=== PATIENT | female | born 1985 | race American Indian/Alaskan Native ===

== ENCOUNTER 2017-04-17 11:06 | Emergency (ER) | payer BC ==
[2017-04-17 11:07] VITALS: BMI 17.5
[2017-04-17 11:20] VITALS: BP 97/60; PULSE 120; RESP 17; TEMP 100.7; O2SAT 97
[2017-04-17] MEDS ORDERED: Amoxicillin-Clav 875-125 mg Tab PO STA (11:56)
--- NOTE | 2017-04-17 12:00 | ED PDOC ---
Arrival/HPI - General Chief Complaint: Cough, Cold, Congestion Time Seen by Provider: 04/17/17 11:23 Historian: Patient - History of Present Illness Narrative History of Present Illness (Text): 04/17/17 31 yo female w/o significant PMHx come in for evaluation of cold sx for past 4 days associated with lower grade fever, frontal headache, nasal congestion, runny nose and worsening of sore throat over the days. Pt describes headache as localized, worse with leaning forward. Otherwise, pt denies high fever, lethargy , denies worse headache of life, dizziness, vertigo, drooling, dyspnea, cough, CP, SOB, wheezing, abd. pain, V/D, back pain, UTI sx, denies recent travel or known sick contact. Ambulate to Ed for evaluation, not in any apparent distress. Past Medical History - Provider Review Nursing Documentation Reviewed: Yes - Travel History Have you recently traveled outside [place] w/in the past 3 mons?: No - Past History Past History: No Previous - Infectious Disease Hx of Infectious Diseases: None - Tetanus Immunization Tetanus Immunization: Unknown - Past Medical History Past Medical History: No Previous - Psychiatric Hx Substance Use: No - Surgical History Hx Section: Yes (2010) - Anesthesia Hx Anesthesia: Yes Hx Anesthesia Reactions: No Hx Malignant Hyperthermia: No - Suicidal Assessment Feels Threatened In Home Enviroment: No Family/Social History - Physician Review Nursing Documentation Reviewed: Yes Family/Social History: No Known Family HX Smoking Status: Former Smoker Hx Alcohol Use: Yes Frequency of alcohol use: Socially Hx Substance Use: No Hx Substance Use Treatment: No Allergies/Home Meds Allergies/Adverse Reactions: Allergies No Known Allergies Allergy (Verified 04/17/17 11:16) Review of Systems - Review of Systems Constitutional: Fevers Eyes: Normal ENT: Sore Throat, Rhinorrhea, Sinus Congestion Respiratory: Normal. absent: Cough, Sputum, Wheezing Cardiovascular: Normal. absent: Chest Pain Gastrointestinal: Normal. absent: Abdominal Pain, Diarrhea, Vomiting Genitourinary Female: Normal Musculoskeletal: Normal Skin: Normal. absent: Rash Neurological: Headache Endocrine: Normal Hemo/Lymphatic: Normal Psychiatric: Normal Physical Exam Vital Signs Reviewed: Yes Vital Signs Temp Pulse Resp BP Pulse Ox 04/17/17 11:18 100.7 F H 120 H 17 97/60 L 97 Temperature: Febrile Blood Pressure: Normal Pulse: Tachycardic Respiratory Rate: Normal Appearance: Positive for: Well-Appearing, Non-Toxic, Comfortable Pain Distress: Mild Mental Status: Positive for: Alert and Oriented X 3 - Systems Exam Head: Present: Normocephalic Conjunctiva: Present: Normal Ears: Present: NORMAL TM Mouth: Present: Moist Mucous Membranes. No: Drooling Pharnyx: Present: ERYTHEMA (B/L), EXUDATE (Left tonsilar), TONSILS ENLARGED (L>R ). No: Peritonsilar Swelling Nose (Internal): Present: Rhinorrhea (clear B/L) Neck: Present: Trachea Midline. No: Meningeal Signs Respiratory/Chest: Present: Clear to Auscultation, Good Air Exchange. No: Respiratory Distress, Accessory Muscle Use, Wheezes, Decreased Breath Sounds Cardiovascular: Present: Regular Rate and Rhythm, Normal S1, S2. No: Murmurs Abdomen: Present: Normal Bowel Sounds. No: Tenderness, Distention, Peritoneal Signs, Rebound, Guarding Back: No: CVA Tenderness Upper Extremity: Present: Normal ROM Lower Extremity: Present: Normal ROM. No: Edema, CALF TENDERNESS, Swelling Neurological: Present: GCS=15, Speech Normal Skin: Present: Warm, Dry, Normal Color. No: Rashes Lymphatic: Present: Cervical Adenopathy (L>R, mild, tender) Psychiatric: Present: Alert, Oriented x 3 Medical Decision Making ED Course and Treatment: 04/17/17 On re-eval, pt is awake, alert, not in any apparent distress. Fever improved, hemodynamicaly stable. PusleOx 97% RA ENT: exam c/w acute tonsillitis, left. SInusitis. Uvula midline, no edema. Neck: SUpple, (-) meningeal sign. Lungs: CTA B/L, BS equal B/L. CVS: (+)S1S2, reg. ABd: benign. Neurologicaly intact. Pt advised on course of ds. ref. to f/u with PMD in 2-3 days for re-eavl. return to ED if any worsening or new changes. - Medication Orders Current Medication Orders: Discontinued Medications Amoxicillin/Clavulanate Potassium (Augmentin 875 Mg-125 Mg Tab) 1 tab PO STAT STA PRN Reason: Protocol Stop: 04/17/17 11:57 Last Admin: 04/17/17 12:15 Dose: 1 tab Ibuprofen (Motrin Tab) 400 mg PO STAT STA Stop: 04/17/17 11:56 Last Admin: 04/17/17 12:15 Dose: 400 mg MAR Pain/Vitals Document 04/17/17 12:15 (Rec: 04/17/17 12:15 [facility]-[id number]) Pain Reassessment Is This A Pain ReAssessment? No Prednisone (Prednisone Tab) 60 mg PO STAT STA Stop: 04/17/17 11:56 Last Admin: 04/17/17 12:15 Dose: 60 mg Disposition/Present on Arrival - Present on Arrival Any Indicators Present on Arrival: No History of DVT/PE: No History of Uncontrolled Diabetes: No Urinary Catheter: No History of Decub. Ulcer: No History Surgical Site Infection Following: None - Disposition Have Diagnosis and Disposition been Completed?: Yes Diagnosis: Tonsillitis Disposition: HOME/ ROUTINE Disposition Time: 11:57 Patient Plan: Discharge Condition: STABLE Discharge Instructions (ExitCare): Tonsillitis (ED) Additional Instructions: ENCOURAGE FLUIDS WARM SALTY WATER THROAT GURGLES TWICE DAILY TAKE MEDICATION PRESCRIBED FOLLOW UP WITH PMD IN 2-3 DAYS FOR RE-EVALUATION. RETURN TO ED IF ANY WORSENING OR NEW CHANGES. Prescriptions: Amoxicillin/Clavulanate [Augmentin 875 MG-125 MG] 1 tab PO BID #14 tab Ibuprofen [Motrin] 1 tab PO Q6 #20 tab Prednisone [Deltasone] 20 mg PO DAILY #3 tablet Referrals: [facility] – [place], [place] [Outside] - Follow up with primary Forms: [employer] (Gu[place]ian), WORK NOTE
== END 2017-04-17 12:41 | disposition home or self-care (01) ==
LOC: ED 11:06
DX: J03.90 Acute tonsillitis, unspecified (principal); Z87.891 Personal history of nicotine dependence

== ENCOUNTER 2017-12-10 10:56 | Emergency (ER) | payer BC ==
[2017-12-10 10:56] VITALS: BMI 17.5
[2017-12-10 11:27] VITALS: BP 108/74; PULSE 80; RESP 16; TEMP 98.6; O2SAT 95
--- NOTE | 2017-12-10 12:06 | ED PDOC ---
Arrival/HPI - General Chief Complaint: GI Problem Time Seen by Provider: 12/10/17 11:06 Historian: Patient - History of Present Illness Narrative History of Present Illness (Text): 12/10/17 12:02 A 32 year old female, with no significant past medical history, presents to the emergency department with a complaint of 3 day duration nausea and vomiting. She notes that she has been vomiting continuously and has not been able to keep any food down. The patient states that she has been trying to stay hydrated and is able to tolerate fluids. She states that she experiences the nausea intermittently. The patient reports that the last full meal she ate was Sunday and that she took Advil that same night for a headache which resolved. The patient does not recall her last menstrual period, but notes that there is a possibility of being . She notes that she has an IUD in place. The patient denies fevers, chills, headache, dizziness, sore throat, cough, chest pain, shortness of breath, dyspnea on exertion, abdominal pain, diarrhea, neck/ back pain, urinary/bowel changes or any other complaint. PMD: None Time/Duration: Other (3 Days) Symptom Onset: Sudden Symptom Course: Unchanged Activities at Onset: Rest, Light Context: Home Past Medical History - Provider Review Nursing Documentation Reviewed: Yes - Past History Past History: No Previous - Infectious Disease Hx of Infectious Diseases: None - Tetanus Immunization Tetanus Immunization: Unknown - Past Medical History Past Medical History: No Previous - Cardiac Hx Cardiac Disorders: No - Pulmonary Hx Respiratory Disorders: No - Neurological Hx Neurological Disorder: No - HEENT Hx HEENT Disorder: No - Renal Hx Renal Disorder: No - Endocrine/Metabolic Hx Endocrine Disorders: No - Hematological/Oncological Hx Blood Disorders: No - Integumentary Hx Dermatological Disorder: No - Musculoskeletal/Rheumatological Hx Musculoskeletal Disorders: No - Gastrointestinal Hx Gastrointestinal Disorders: No - Genitourinary/Gynecological Hx Genitourinary Disorders: Yes Other/Comment: IUD - Psychiatric Hx Psychophysiologic Disorder: No Hx Substance Use: No - Surgical History Hx Section: Yes - Anesthesia Hx Anesthesia: Yes Hx Anesthesia Reactions: No Hx Malignant Hyperthermia: No - Suicidal Assessment Feels Threatened In Home Enviroment: No Family/Social History - Physician Review Nursing Documentation Reviewed: Yes Family/Social History: No Known Family HX Smoking Status: Former Smoker Hx Alcohol Use: Yes Hx Substance Use: No Hx Substance Use Treatment: No Allergies/Home Meds Allergies/Adverse Reactions: Allergies No Known Allergies Allergy (Verified 12/10/17 11:21) Home Medications: Home Meds Medication Instructions Recorded Confirmed No Known Home Med 12/10/17 12/10/17 Review of Systems - Physician Review All systems were reviewed & negative as marked: Yes - Review of Systems Constitutional: absent: Fevers, Night Sweats ENT: absent: Sore Throat Respiratory: absent: SOB, Cough Cardiovascular: absent: Chest Pain, BRAGA Gastrointestinal: Nausea, Vomiting. absent: Abdominal Pain, Stool Changes, Diarrhea Genitourinary Female: absent: Urine Output Changes Musculoskeletal: absent: Back Pain, Neck Pain Neurological: absent: Headache, Dizziness Physical Exam Vital Signs Reviewed: Yes Vital Signs Temp Pulse Resp BP Pulse Ox 12/10/17 11:21 98.6 F 80 16 108/74 95 Temperature: Afebrile Blood Pressure: Normal Pulse: Regular Respiratory Rate: Normal Appearance: Positive for: Well-Appearing, Non-Toxic, Comfortable Pain Distress: None Mental Status: Positive for: Alert and Oriented X 3 - Systems Exam Head: Present: Atraumatic, Normocephalic Pupils: Present: PERRL Extroacular Muscles: Present: EOMI Conjunctiva: Present: Normal Mouth: Present: Moist Mucous Membranes Neck: Present: Normal Range of Motion Respiratory/Chest: Present: Clear to Auscultation, Good Air Exchange. No: Respiratory Distress, Accessory Muscle Use Cardiovascular: Present: Regular Rate and Rhythm, Normal S1, S2. No: Murmurs Abdomen: Present: Normal Bowel Sounds. No: Tenderness, Distention, Peritoneal Signs Back: Present: Normal Inspection. No: CVA Tenderness Upper Extremity: Present: Normal Inspection. No: Cyanosis, Edema Lower Extremity: Present: Normal Inspection. No: Edema Neurological: Present: GCS=15, CN II-XII Intact, Speech Normal Skin: Present: Warm, Dry, Normal Color. No: Rashes Psychiatric: Present: Alert, Oriented x 3, Normal Insight, Normal Concentration Medical Decision Making ED Course and Treatment: 12/10/17 12:07 Impression: A 32 year old female presents to the emergency department complaining of 3 day duration nausea and vomiting. Plan: -- Pepcid -- Zofran -- Reassess and disposition Progress Notes: 12/10/17 12:31 On reevaluation the patient feels better and is in no acute distress. She is able to tolerate PO fluids without vomiting. I have discussed the results and plan with the patient, who expresses understanding. Patient given the opportunity to ask question, all questions were answered and there is agreement with the plan to discharge the patient home. Patient is stable for discharge. Patient was instructed to follow up with physician/clinic in 1-2 days or return if symptoms persist/worsen or new concerning symptoms arise. - Medication Orders Current Medication Orders: Discontinued Medications Famotidine (Pepcid) 20 mg PO STAT STA Stop: 12/10/17 11:38 Last Admin: 12/10/17 11:52 Dose: 20 mg Ondansetron HCl (Zofran Odt) 4 mg PO STAT STA Stop: 12/10/17 11:38 Last Admin: 12/10/17 11:52 Dose: 4 mg - Scribe Statement The provider has reviewed the documentation as recorded by the Jensibe Brandy Multani Provider Scribe Attestation: All medical record entries made by the Scribe were at my direction and personally dictated by me. I have reviewed the chart and agree that the record accurately reflects my personal performance of the history, physical exam, medical decision making, and the department course for this patient. I have also personally directed, reviewed, and agree with the discharge instructions and disposition. Disposition/Present on Arrival - Present on Arrival Any Indicators Present on Arrival: No History of DVT/PE: No History of Uncontrolled Diabetes: No Urinary Catheter: No History of Decub. Ulcer: No History Surgical Site Infection Following: None - Disposition Have Diagnosis and Disposition been Completed?: Yes Diagnosis: Gastritis, Vomiting Disposition: HOME/ ROUTINE Disposition Time: 12:54 Patient Plan: Discharge Condition: IMPROVED Discharge Instructions (ExitCare): Nausea and Vomiting, Adult (DC) Additional Instructions: NICHOLAS LEE, thank you for letting us take care of you today. Your provider was Bayron Rodríguez DO and you were treated for Vomiting, Gastritis. The emergency medical care you received today was directed at your acute symptoms. If you were prescribed any medication, please fill it and take as directed. It may take several days for your symptoms to resolve. Return to the Emergency Department if your symptoms worsen, do not improve, or if you have any other problems. Please contact your doctor or call one of the physicians/clinics you have been referred to that are listed on the Patient Visit Information form that is included in your discharge packet. Bring any paperwork you were given at discharge with you along with any medications you are taking to your follow up visit. Our treatment cannot replace ongoing medical care by a primary care provider outside of the emergency department. Thank you for allowing the [facility] team to be part of your care today. If you had an X-Ray or CT scan: A Radiologist will review the ED reading if any change in treatment is needed we will contact you. If you had a blood, urine, or wound culture: It will take several days for the results, if any change in treatment is needed we will contact you. If you had an STI test: It will take 48 hours for the results. Please call after 1 week if you have not heard back. Referrals: Kailyn Sandoval MD [Staff Provider] - Follow up with primary Forms: [employer] (Czech), WORK NOTE
== END 2017-12-10 12:54 | disposition home or self-care (01) ==
LOC: ED 10:56
DX: K29.70 Gastritis, unspecified, without bleeding (principal); R11.10 Vomiting, unspecified